=== PATIENT | male | born 1975 | race Hispanic/Latino ===

== ENCOUNTER 2016-08-10 11:43 | Emergency (ER) | payer MEDICAID ==
[2016-08-10 11:43] VITALS: BMI 26.4
[2016-08-10 11:47] VITALS: TEMP 98.6
--- NOTE | 2016-08-10 12:03 | C.PDOC ---
History Of Present Illness 40 y/o male brought to ED from pain management doctor's office via ambulance for suspected seizure while at the office. Patient denies having a seizure on arrival. Otherwise, patient denies any other symptoms. Denies tongue bite, incontinence, headache, nausea, vomiting. Mother is now at bedside who reports that he was accompanying his girlfriend at her appointment, and that the patient fell backwards hitting his head on the ground. Time Seen by Provider: 08/10/16 11:53 Chief Complaint (Nursing): Seizure History Per: Patient History/Exam Limitations: no limitations Length Of Seizures (Duration): Unknown Post-ictal Period: No Past Medical History Reviewed: Historical Data, Nursing Documentation, Vital Signs Vital Signs: Last Vital Signs Temp 98.6 F 08/10/16 11:56 Pulse 70 08/10/16 14:12 Resp 14 08/10/16 14:12 BP 138/85 08/10/16 14:12 Pulse Ox 97 08/10/16 16:49 - Medical History PMH: Back Problems (9 herniated disc), Seizures, Chronic Pain Surgical History: Appendectomy Family History: States: Unknown Family Hx - Social History Hx Tobacco Use: Yes Hx Alcohol Use: No Hx Substance Use: Yes - Immunization History Hx Tetanus Toxoid Vaccination: No Hx Influenza Vaccination: No Review Of Systems Except As Marked, All Systems Reviewed And Found Negative. Constitutional: Negative for: Fever, Chills Cardiovascular: Negative for: Chest Pain Respiratory: Negative for: Cough, Shortness of Breath Gastrointestinal: Negative for: Nausea, Vomiting Genitourinary: Negative for: Incontinence Skin: Negative for: Rash Physical Exam - Physical Exam Appears: Non-toxic, No Acute Distress, Other (awake, alert) Skin: Warm, Dry Head: Normacephalic, Other (mild bruise to posterior scalp) Eye(s): bilateral: Normal Inspection, PERRL, EOMI Oral Mucosa: Moist Tongue: No Bite Neck: No Midline Cervical Tenderness, No Paracervical Tenderness, Supple Chest: Symmetrical Cardiovascular: Rhythm Regular Respiratory: Normal Breath Sounds, No Rales, No Rhonchi, No Wheezing Gastrointestinal/Abdominal: Soft, No Tenderness, No Guarding, No Rebound Back: Normal Inspection Extremity: Normal ROM, Capillary Refill (< 2 sec. ) Neurological/Psych: Oriented x3, Normal Speech, Normal Cognition ED Course And Treatment - Laboratory Results Result Diagrams: 08/10/16 12:13 08/10/16 12:13 Lab Interpretation: Normal ECG: Interpreted By Me ECG Rhythm: Sinus Rhythm ECG Interpretation: Normal Rate From EC O2 Sat by Pulse Oximetry: 97 (RA) Pulse Ox Interpretation: Normal - CT Scan/US No standard instances Other Rad Studies (CT/US): Read By Radiologist, Radiology Report Reviewed CT/US Interpretation: FINDINGS: HEMORRHAGE: No intracranial hemorrhage. BRAIN : No mass effect or edema. No atrophy or chronic microvascular ischemic changes. VENTRICLES: Unremarkable. No hydrocephalus. CALVARIUM: Unremarkable. PARANASAL SINUSES: Unremarkable as visualized. No significant inflammatory changes. MASTOID AIR CELLS: Unremarkable as visualized. No inflammatory changes. OTHER FINDINGS: None. IMPRESSION: No intracranial mass , hemorrhage or evidence of acute infarct. Unremarkable examination. Progress Note: EKG and basic labs ordered, reviewed. On re-evaluation ambulating with steady gait, neuro intact. Outside smoking Reassessment Condition: Improved Disposition Counseled Patient/Family Regarding: Studies Performed, Diagnosis, Need For Followup, Rx Given - Disposition Referrals: [facility] [Outside] [facility] [Outside] Disposition: HOME/ ROUTINE Disposition Time: 13:00 Condition: IMPROVED Additional Instructions: Follow up with your PMD or clinic for further evaluation Return to ED if any increase symptoms Instructions: Head Injury (ED) - POA Present On Arrival: None - Clinical Impression Clinical Impression: Head injury, Chronic pain - PA / ORTHODONTIC TREATMENT COORDINATOR / Resident Statement MD/DO has reviewed & agrees with the documentation as recorded. - Scribe Statement The provider has reviewed the documentation as recorded by the Manjinder Soria All medical record entries made by the Manjinder were at my direction and personally dictated by me. I have reviewed the chart and agree that the record accurately reflects my personal performance of the history, physical exam, medical decision making, and the department course for this patient. I have also personally directed, reviewed, and agree with the discharge instructions and disposition.
[2016-08-10] MEDS ORDERED: Sodium Chloride 0.9% 1,000 ML ONE (12:13)
[2016-08-10] MEDS: Sodium Chloride 0.9% 1,000 ML IV ONE (12:14)
[2016-08-10 12:16] LABS: BASO % 0.2 % (0.0-2.0); EOS % 0.1 % (0.0-4.0); HEMATOCRIT 45.6 % (35.0-51.0); LYMPH % 17.7 % (20.0-40.0); MEAN CELL VOLUME 80.6 fL (80.0-94.0); MEAN CORPUSCULAR HEMOGLOBIN 26.5 pg (27.0-31.0); MEAN CORPUSCULAR HGB CONC 32.8 g/dL (33.0-37.0); MEAN PLATELET VOLUME 8.5 fL (7.2-11.7); MONO # 0.5 K/uL (0.0-0.8); MONO % 4.3 % (0.0-10.0); RED CELL DISTRIBUTION WIDTH 15.2 % (11.5-14.5); WHITE BLOOD COUNT 11.3 K/uL (4.8-10.8)
[2016-08-10 12:27] LABS: CHLORIDE 100 mmol/L (98-107); SODIUM 139 mmol/L (132-148)
[2016-08-10 12:28] LABS: POTASSIUM 3.9 mmol/L (3.6-5.2)
[2016-08-10 12:30] LABS: ALB/GLOB RATIO 1.4 (1.0-2.1); ALKALINE PHOSPHATASE 63 U/L (38-126); ALT/SGPT 15 U/L (21-72); AST/SGOT 21 U/L (17-59); BILIRUBIN,TOTAL 0.6 mg/dL (0.2-1.3); BLOOD UREA NITROGEN 12 mg/dL (9-20); CALCIUM 8.7 mg/dl (8.6-10.4); CARBON DIOXIDE 26 mmol/L (22-30); GFR AFRICAN-AMERICAN > 60; GLUCOSE,RANDOM 109 mg/dL (75-110); TOTAL PROTEIN 7.4 g/dL (6.3-8.3)
[2016-08-10 12:31] LABS: ALCOHOL SERUM < 10 mg/dl (0-10)
--- NOTE | 2016-08-10 12:56 | CT ---
PROCEDURE: CT HEAD WITHOUT CONTRAST. HISTORY: R/O Bleed COMPARISON: None available. TECHNIQUE: Axial computed tomography images were obtained through the head/brain without intravenous contrast. Radiation dose: Total exam DLP = 857.59 mGy-cm. This CT exam was performed using one or more of the following dose reduction techniques: Automated exposure control, adjustment of the mA and/or kV according to patient size, and/or use of iterative reconstruction technique. FINDINGS: HEMORRHAGE: No intracranial hemorrhage. BRAIN: No mass effect or edema. No atrophy or chronic microvascular ischemic changes. VENTRICLES: Unremarkable. No hydrocephalus. CALVARIUM: Unremarkable. PARANASAL SINUSES: Unremarkable as visualized. No significant inflammatory changes. MASTOID AIR CELLS: Unremarkable as visualized. No inflammatory changes. OTHER FINDINGS: None. IMPRESSION: No intracranial mass, hemorrhage or evidence of acute infarct. Unremarkable examination.
[2016-08-10 14:22] VITALS: BP 138/85; PULSE 70; RESP 14
[2016-08-10 16:48] VITALS: O2SAT 97
--- NOTE | 2016-08-12 12:15 | CARD ---
APPROVED REPORT EKG Measurement Heart [id number] PA 140P3 [id number] <Conclusion> Normal sinus rhythm Normal ECG
== END 2016-08-10 14:12 | disposition home or self-care (01) ==
LOC: C.ER 11:43
DX: S09.90XA Unspecified injury of head, initial encounter (principal); W01.0XXA Fall on same level from slipping, tripping and stumbling without subsequent striking against object, initial encounter; Y93.89 Activity, other specified; Y92.89 Other specified places as the place of occurrence of the external cause; G89.29 Other chronic pain
CPT/HCPCS: 70450; 80053; 80320; 82948; 85025; 93005; 96360; 99285; J7040

== ENCOUNTER 2017-07-24 11:19 | Emergency (ER) | payer MEDICAID ==
[2017-07-24 11:26] VITALS: BMI 24.4
[2017-07-24 11:31] VITALS: TEMP 99
[2017-07-24] MEDS ORDERED: Sodium Chloride 0.9% 1,000 ML IV ONE (12:56)
[2017-07-24] MEDS ORDERED: Sodium Chloride 0.9% 1,000 ML ONE (13:14)
[2017-07-24 13:16] LABS: BASO % 0.3 % (0.0-2.0); EOS % 0.5 % (0.0-4.0); HEMOGLOBIN 14.5 g/dL (12.0-18.0); LYMPH # 1.4 K/uL (1.0-4.3); LYMPH % 17.1 % (20.0-40.0); MEAN CELL VOLUME 79.3 fL (80.0-94.0); MEAN CORPUSCULAR HEMOGLOBIN 27.1 pg (27.0-31.0); MEAN CORPUSCULAR HGB CONC 34.1 g/dL (33.0-37.0); MEAN PLATELET VOLUME 8.8 fL (7.2-11.7); MONO # 0.4 K/uL (0.0-0.8); MONO % 4.6 % (0.0-10.0); NEUT # 6.5 K/uL (1.8-7.0); NEUT % 77.5 % (50.0-75.0); RBC 5.35 Mil/uL (4.40-5.90); RED CELL DISTRIBUTION WIDTH 14.6 % (11.5-14.5); WHITE BLOOD COUNT 8.4 K/uL (4.8-10.8)
[2017-07-24 13:30] LABS: ALB/GLOB RATIO 1.2 (1.0-2.1); ALT/SGPT 12 U/L (21-72); AST/SGOT 23 U/L (17-59); BLOOD UREA NITROGEN 13 mg/dL (9-20); CALCIUM 9.2 mg/dl (8.6-10.4); GFR AFRICAN-AMERICAN > 60; GFR NON-AFRICAN AMERICAN > 60
--- NOTE | 2017-07-24 13:33 | RAD ---
PROCEDURE: CHEST RADIOGRAPH, 1 VIEW HISTORY: Seizure COMPARISON: None available. FINDINGS: LUNGS: Clear. PLEURA: No pneumothorax or pleural fluid seen. CARDIOVASCULAR: Normal. OSSEOUS STRUCTURES: No significant abnormalities. VISUALIZED UPPER ABDOMEN: Normal. OTHER FINDINGS: None. IMPRESSION: No active disease.
[2017-07-24 13:37] LABS: SQUAMOUS EPITHIAL < 1 /hpf (0-5); URINE BILIRUBIN NEGATIVE (NEGATIVE); URINE BLOOD NEGATIVE (NEGATIVE); URINE CLARITY Hazy (Clear); URINE COLOR Yellow (YELLOW); URINE GLUCOSE (UA) NORMAL (Normal); URINE HYALINE CAST 0-2 /lpf (0-2); URINE LEUKOCYTE ESTERASE NEG Leu/uL (Negative); URINE PROTEIN 1+ mg/dL (NEGATIVE); URINE UROBILINOGEN NORMAL mg/dL (0.2-1.0)
[2017-07-24 13:55] LABS: BARBITURATES, UR NEGATIVE (NEGATIVE); OPIATES, UR NEGATIVE (NEGATIVE); PHENCYCLIDINE, UR NEGATIVE (NEGATIVE)
[2017-07-24 14:15] LABS: BENZODIAZEPINES, UR POSITIVE (NEGATIVE)
--- NOTE | 2017-07-24 14:20 | C.PDOC ---
History Of Present Illness 41yo male, brought to ER for evaluation after he was noted to have seizure like activity at a restaurant. Patient has a history of alcohol withdrawal seizure, substance abuse including narcotics abuse. He states he has not had alcohol for the past 1.5 years and denies any substance use recently. He denies any fever, chills, chest pain, shortness of breath, abdominal pain. PMD: None Time Seen by Provider: 07/24/17 12:49 Chief Complaint (Nursing): Seizure History Per: Patient History/Exam Limitations: no limitations Past Medical History Reviewed: Historical Data, Nursing Documentation, Vital Signs Vital Signs: Last Vital Signs Temp 99.0 F 07/24/17 11:28 Pulse 94 H 07/24/17 14:39 Resp 17 07/24/17 14:39 BP 115/70 07/24/17 14:39 Pulse Ox 96 07/24/17 14:39 - Medical History PMH: Back Problems (9 herniated disc), Seizures, Chronic Pain Denies: Anxiety, Bipolar Disorder, Depression, Paranoia, Post Traumatic Stress Disorder, Schizophrenia Surgical History: Appendectomy Family History: States: No Known Family Hx, Unknown Family Hx - Social History Hx Tobacco Use: Yes Hx Alcohol Use: No Hx Substance Use: Yes - Immunization History Hx Tetanus Toxoid Vaccination: No Hx Influenza Vaccination: No Review Of Systems Except As Marked, All Systems Reviewed And Found Negative. Constitutional: Negative for: Fever, Chills Cardiovascular: Negative for: Chest Pain Respiratory: Negative for: Shortness of Breath Gastrointestinal: Negative for: Abdominal Pain Neurological: Positive for: Seizures Physical Exam - Physical Exam Appears: Non-toxic, Other (anxious appearing) Skin: Normal Color, Warm, Dry Head: Normacephalic, Laceration (1x1cm abrasion occipital scalp) Eye(s): bilateral: Normal Inspection Neck: Normal ROM, Supple Chest: Symmetrical Cardiovascular: Rhythm Regular Respiratory: Normal Breath Sounds Gastrointestinal/Abdominal: Normal Exam, Soft, No Tenderness Extremity: Normal ROM, No Deformity Neurological/Psych: Oriented x3 ED Course And Treatment - Laboratory Results Result Diagrams: 07/24/17 13:12 07/24/17 13:12 Lab Interpretation: Normal (tox + benzo's (given in ED)) ECG: Interpreted By Me ECG Rhythm: Sinus Rhythm ECG Interpretation: Normal Rate From EC O2 Sat by Pulse Oximetry: 96 (RA) Pulse Ox Interpretation: Normal - Radiology CXR: Interpreted by Me CXR Interpretation: Yes: No Acute Disease Reevaluation Time: 14:56 Reassessment Condition: Improved (stable, comfortable, eating lunch. prefers d/ c and opt f/u with Neuro) Medical Decision Making Medical Decision Making: Impression: Seizure Plan: -- Labs -- EKG -- IV FLuids -- Ativan 1mg IVP -- Keppra 500mg IVP -- UDS pt claims to not be sleeping well lately, may have provoked seizure no present substance abuse detected. Disposition Doctor Will See Patient In The: Office Counseled Patient/Family Regarding: Studies Performed, Diagnosis - Disposition Disposition: HOME/ ROUTINE Disposition Time: 14:57 Condition: GOOD Forms: [facility] (Lao) - Clinical Impression Clinical Impression: Seizure - Scribe Statement The provider has reviewed the documentation as recorded by the Scribe (Nori Bennett) Provider Attestation: All medical record entries made by the Scribe were at my direction and personally dictated by me. I have reviewed the chart and agree that the record accurately reflects my personal performance of the history, physical exam, medical decision making, and the department course for this patient. I have also personally directed, reviewed, and agree with the discharge instructions and disposition.
[2017-07-24 14:47] VITALS: BP 115/70; PULSE 94; RESP 17; O2SAT 96
--- NOTE | 2017-07-25 12:18 | CARD ---
APPROVED REPORT EKG Measurement Heart [id number] NE 150P70 [id number] <Conclusion> Normal sinus rhythm Possible Left atrial enlargement Borderline ECG
== END 2017-07-24 15:08 | disposition home or self-care (01) ==
LOC: C.ER 11:19
DX: G40.909 Epilepsy, unspecified, not intractable, without status epilepticus (principal)
CPT/HCPCS: 71045; 80053; 80320; 80324; 80345; 80346; 80349; 80353; 80358; 80361; 81001; 82550; 82948; 83992; 85025; 93005; 96361; 96365; 96375; 99285; J1953; J2060; J7040